=== PATIENT | male | born 1935 | race Caucasian/White ===

== ENCOUNTER 2016-12-31 14:15 | Emergency (ER) | payer MEDICARE, OTHER ==
[2016-12-31 14:54] VITALS: TEMP 97.5
[2016-12-31] MEDS ORDERED: IPRATROPIUM/ALBUTEROL 3 ML VIAL NEB ONE (15:00)
--- NOTE | 2016-12-31 15:19 | RAD ---
Portable chest INDICATION: Dyspnea COMPARISON: April 25, 2016 IMPRESSION: Cardiomegaly with no florid failure. No pleural effusion or pneumothorax. No focal infiltrate. Tortuous aorta. Previous median sternotomy. Stable chest Electronically signed by: Chaim Nunez MD 12/31/2016 3:17 PM CDT
[2016-12-31] MEDS ORDERED: methylPREDNISolone SODIUM SUC 125 MG/2 ML VIAL IV ONE (15:46)
--- NOTE | 2016-12-31 15:50 | ED.PDOC ---
History of Present Illness - General Chief Complaint: Respiratory Problem Stated Complaint: shortness of breath Time Seen by Provider: 12/31/16 14:54 Source: patient Exam Limitations: no limitations - History of Present Illness Initial Comments: 81 yo M with COPD on 3 L oxygen constantly, s/p AMI with CABG, atrial fibrillation on dagibatrin presents with increasing dyspnea for one week. He also has had an increasing dry cough. He has had COPD exacerbations before and says that is what he thinks this is. No chest pain. No hx of bipedal edema. + former smoker, quit 9 years ago, no fever. He has not tried to increase his oxygen. No other complaints. Timing/Duration: 1 week Severity: mild Improving Factors: rest Worsening Factors: movement Associated Symptoms: cough Allergies/Adverse Reactions: Allergies NO KNOWN ALLERGY Allergy (Verified 12/31/16 14:57) Home Medications: Ambulatory Orders Atorvastatin Calcium [Lipitor] 10 mg PO HS #0 10/23/13 Dabigatran Etexilate [Pradaxa] 75 mg PO BID #0 cap 10/23/13 Aspirin [Baby Aspirin] 81 mg PO QD 07/25/14 Lisinopril 2.5 mg PO DAILY 07/25/14 Spironolactone 25 mg PO DAILY #30 tab 05/17/15 Azithromycin Tab [Zithromax] 250 mg PO QD #4 tab 04/25/16 Furosemide Tab [Lasix Tab] 80 mg PO BID 04/25/16 Metoprolol Succinate [Metoprolol Succinate ER] 12.5 mg PO BID 04/25/16 Potassium Chloride [Micro-K] 10 meq PO .M,W,F, 04/25/16 Prednisone 50 mg PO DAILY #4 tab 04/25/16 Prednisone [Deltasone] 20 mg PO DAILY #5 tab 12/31/16 Review of Systems - Review of Systems Constitutional: States: no symptoms reported Respiratory: States: see HPI Cardiology: States: no symptoms reported Gastrointestinal/Abdominal: States: no symptoms reported Genitourinary: States: no symptoms reported Musculoskeletal: States: no symptoms reported Skin: States: no symptoms reported Neurological: States: no symptoms reported Endocrine: States: no symptoms reported Hematologic/Lymphatic: States: no symptoms reported Past Medical History (General) - Patient Medical History Hx Seizures: No Hx Stroke: No Hx Asthma: Yes Hx of COPD: Yes Hx Cardiac Disorders: Yes - AFIB, CAD WITH STENTS Hx Congestive Heart Failure: Yes Hx Pacemaker: No Hx Hypertension: Yes Hx Diabetes: Yes - CURRENTLY DIET CONTROLLED, NO MEDS Hx Gastroesophageal Reflux: No Hx Renal Disease: No Hx Cancer: Yes - bladder Hx Hepatitis C: No Hx MRSA: Yes MRSA Source:: Urine Surgical History: other - Vaccination History Hx Tetanus, Diphtheria Vaccination: Yes Hx Influenza Vaccination: Yes Hx Pneumococcal Vaccination: Yes - Social History Hx Tobacco Use: No Hx Alcohol Use: No Hx Substance Use: No Hx Substance Use Treatment: No Hx Depression: No Hx Physical Abuse: No Hx Emotional Abuse: No Hx Suspected Abuse: No - Activities of Daily Living Hospice Agency (if applicable):: None - Female History Patient is a Female of Child Bearing Age (10 -59 yrs old): No Patient : No Family Medical History - Family History Mother Family History: No Known Cause of : old age Physical Exam - Physical Exam General Appearance: Alert Ears, Nose, Throat: normal ENT inspection Neck: non-tender, full range of motion, supple Respiratory: chest non-tender, lungs clear Cardiovascular/Chest: normal peripheral pulses, irregularly irregular Gastrointestinal/Abdominal: normal bowel sounds, non tender, soft Back Exam: no CVA tenderness Extremity: normal inspection, no pedal edema Skin Exam: normal color Lymphatic: no adenopathy Progress - Progress Progress: 12/31/16 15:51 Duonebs x one. Solumedrol 125 mg IV x one. 12/31/16 17:31 Patient's dyspnea resolved. He was sent home with prednisone 20 mg po qd x 5 days. Laboratory Tests 12/31/16 12/31/16 12/31/16 15:15 15:15 15:15 WBC 8.4 RBC 4.13 L Hgb 12.7 L Hct 38.7 L MCV 93.6 MCH 30.7 MCHC 32.9 L RDW 15.5 H Plt Count 172 MPV 8.7 Absolute Neuts (auto) 5.30 Absolute Lymphs (auto) 1.10 Absolute Monos (auto) 0.90 H Absolute Eos (auto) 1.00 H Absolute Basos (auto) 0.10 Neutrophils % 63.0 Lymphocytes % 12.6 L Monocytes % 10.6 H Eosinophils % 12.4 H Basophils % 1.4 PT 13.3 H INR 1.180 PTT (SP) 47.3 H Sodium 138 Potassium 4.6 Chloride 102 Carbon Dioxide 28 Anion Gap 12.6 BUN 28 H Creatinine 2.04 H BUN/Creatinine Ratio 13.7 Random Glucose 104 Serum Osmolality 281.5 Calcium 8.9 Total Bilirubin 0.4 AST 14 ALT 10 Alkaline Phosphatase 70 Creatine Kinase 75 CK-MB (CK-2) 1.7 CK-MB (CK-2) % Not Reportable Troponin I 0.02 B-Natriuretic Peptide 193.0 H Serum Total Protein 6.8 Albumin 4.0 Globulin 2.8 Albumin/Globulin Ratio 1.4 Departure - Departure Clinical Impression: COPD exacerbation Disposition: Discharge to Home or Self Care Condition: Good Departure Forms: ED Discharge - Pt. Copy, Patient Portal Self Enrollment Diet: resume usual diet Activity: increase activity as tolerated Referrals: Raj Louie III, MD [Primary Care Provider] - 1-2 Weeks Prescriptions: Prednisone [Deltasone] 20 mg PO DAILY #5 tab Home Medications: Ambulatory Orders Atorvastatin Calcium [Lipitor] 10 mg PO HS #0 10/23/13 Dabigatran Etexilate [Pradaxa] 75 mg PO BID #0 cap 10/23/13 Aspirin [Baby Aspirin] 81 mg PO QD 07/25/14 Lisinopril 2.5 mg PO DAILY 07/25/14 Spironolactone 25 mg PO DAILY #30 tab 05/17/15 Azithromycin Tab [Zithromax] 250 mg PO QD #4 tab 04/25/16 Furosemide Tab [Lasix Tab] 80 mg PO BID 04/25/16 Metoprolol Succinate [Metoprolol Succinate ER] 12.5 mg PO BID 04/25/16 Potassium Chloride [Micro-K] 10 meq PO .M,W,F, 04/25/16 Prednisone 50 mg PO DAILY #4 tab 04/25/16 Prednisone [Deltasone] 20 mg PO DAILY #5 tab 12/31/16 Additional Instructions: Take medication as prescribed. Follow up with your regular doctor within one week.
[2016-12-31 17:45] VITALS: BP 114/69; O2SAT 92
== END 2016-12-31 17:43 | disposition home or self-care (01) ==
LOC: ER 14:15
DX: J44.1 Chronic obstructive pulmonary disease with (acute) exacerbation (principal); I48.91 Unspecified atrial fibrillation; I11.0 Hypertensive heart disease with heart failure; I50.9 Heart failure, unspecified; E11.9 Type 2 diabetes mellitus without complications; Z85.51 Personal history of malignant neoplasm of bladder; Z99.81 Dependence on supplemental oxygen; Z79.82 Long term (current) use of aspirin; Z79.899 Other long term (current) drug therapy; Z86.14 Personal history of Methicillin resistant Staphylococcus aureus infection
CPT/HCPCS: 36415; 71010; 80053; 82550; 82553; 83880; 84484; 85025; 85610; 85730; 93005; 94640; J2930; J7620

== ENCOUNTER → 2017-02-20 | Outpatient (CLI) | payer MEDICARE, OTHER | END | disposition home or self-care (01) | LOC: GMAL 10:21 | PROVIDERS: ATTEND Family Medicine | DX: D51.3 Other dietary vitamin B12 deficiency anemia (principal); E55.9 Vitamin D deficiency, unspecified ==

== ENCOUNTER → 2017-03-02 | Outpatient (CLI) | payer MEDICARE, OTHER ==
--- NOTE | 2017-03-02 11:51 | RAD ---
EXAM DESCRIPTION: Hip,Left 2 Views (accession [id number]), Pelvis (accession [id number]) CLINICAL HISTORY: 81 years,Male,PAIN IN LEFT HIP COMPARISON: June 20, 2016 FINDINGS: The left hip demonstrates total hip arthroplasty which appears unremarkable. No fractures or lucencies about the hardware devices. No dislocations.. The joint spaces demonstrate mild loss superiorly in the right hip.. The included pelvis is unremarkable. Endograft stenting is seen and coils in the right pelvis are also seen. IMPRESSION: Stable Unremarkable left total hip arthroplasty. And very mild right hip osteoarthritic changes. Electronically signed by: Raj Crouch MD 03/02/2017 11:50 AM CDT
--- NOTE | 2017-03-02 11:51 | RAD ---
EXAM DESCRIPTION: Hip,Left 2 Views (accession [id number]), Pelvis (accession [id number]) CLINICAL HISTORY: 81 years,Male,PAIN IN LEFT HIP COMPARISON: June 20, 2016 FINDINGS: The left hip demonstrates total hip arthroplasty which appears unremarkable. No fractures or lucencies about the hardware devices. No dislocations.. The joint spaces demonstrate mild loss superiorly in the right hip.. The included pelvis is unremarkable. Endograft stenting is seen and coils in the right pelvis are also seen. IMPRESSION: Stable Unremarkable left total hip arthroplasty. And very mild right hip osteoarthritic changes. Electronically signed by: Raj Crouch MD 03/02/2017 11:50 AM CDT
== END | disposition home or self-care (01) ==
LOC: RAD 08:47
PROVIDERS: ATTEND Orthopaedic Surgery
DX: M25.552 Pain in left hip (principal)

== ENCOUNTER → 2017-03-19 | Outpatient (CLI) | payer MEDICARE, OTHER ==
--- NOTE | 2017-03-20 10:11 | NM ---
EXAM DESCRIPTION: Bone Scan, 3Phase CLINICAL HISTORY: 81 years Male, [employer] COMPARISON: AP view of the pelvis March 02, 2017 TECHNIQUE: Three phase bone scan of the pelvis and hip region was performed using 25.9 mCi of technetium MDP. FINDINGS: Flow study demonstrates normal flow study with symmetric activity involving the pelvis and hip regions with a photopenic area from the left hip replacement noted. Blood pool imaging suggests a tiny amount of activity at the lateral aspect of the left hip overlying the region of the greater trochanter. There are delayed imaging demonstrates modest activity in this location and also at the tip of the left hip prosthesis within the proximal femoral shaft. The possibility of loosening of the prosthesis should be considered. The pattern is not typical for osteomyelitis or septic joint replacement. Increased activity in the region of the acetabulum is not apparent. An element of enteric bursitis related to the hypertrophic bony changes over the greater trochanter would be an additional consideration. IMPRESSION: 1. Normal blood flow study with no evidence of hyperemic changes in the region of the left hip replacement. 2. Modest delayed activity overlying the region of the left greater trochanter and at the tip of the femoral prosthesis suggesting the possibility of loosening and/or trochanteric bursitis. The pattern is not strongly suggest osteomyelitis or septic arthropathy. Electronically signed by: Pérez Perez MD 03/20/2017 10:09 AM CDT
== END | disposition home or self-care (01) ==
LOC: NM 13:51
PROVIDERS: ATTEND Orthopaedic Surgery
DX: T84.84XA Pain due to internal orthopedic prosthetic devices, implants and grafts, initial encounter (principal)
CPT/HCPCS: 78315; A9503

== ENCOUNTER 2017-08-10 12:54 | Emergency (ER) | payer MEDICARE, OTHER ==
[2017-08-10] MEDS ORDERED: IPRATROPIUM/ALBUTEROL 3 ML VIAL NEB ONE (14:14)
--- NOTE | 2017-08-10 14:17 | ED.PDOC ---
History of Present Illness - General Chief Complaint: Respiratory Problem Time Seen by Provider: 08/10/17 14:03 Source: patient Exam Limitations: no limitations - History of Present Illness Timing/Duration: other - three days Severity: severe Activities at Onset: none Possible Cause: frequent episodes Improving Factors: nothing Worsening Factors: movement Associated Symptoms: cough Allergies/Adverse Reactions: Allergies NO KNOWN ALLERGY Allergy (Verified 12/31/16 14:57) Home Medications: Ambulatory Orders Atorvastatin Calcium [Lipitor] 10 mg PO HS #0 10/23/13 Dabigatran Etexilate [Pradaxa] 75 mg PO BID #0 cap 10/23/13 Aspirin [Baby Aspirin] 81 mg PO QD 07/25/14 Lisinopril 2.5 mg PO DAILY 07/25/14 Spironolactone 25 mg PO DAILY #30 tab 05/17/15 Azithromycin Tab [Zithromax] 250 mg PO QD #4 tab 04/25/16 Furosemide Tab [Lasix Tab] 80 mg PO BID 04/25/16 Metoprolol Succinate [Metoprolol Succinate ER] 12.5 mg PO BID 04/25/16 Potassium Chloride [Micro-K] 10 meq PO .M,W,F, 04/25/16 Prednisone 50 mg PO DAILY #4 tab 04/25/16 Prednisone [Deltasone] 20 mg PO DAILY #5 tab 12/31/16 Levofloxacin Tab (ER Dispense) [Levaquin Tab (ER Dispense)] 500 mg PO Q24HR #10 tab 08/10/17 Prednisone [Deltasone] 20 mg PO BID #10 tab 08/10/17 Review of Systems - Review of Systems Constitutional: States: chills, malaise, weakness. Denies: fever EENTM: Denies: nose congestion, throat pain Respiratory: States: cough, short of breath. Denies: orthopnea Cardiology: Denies: chest pain Gastrointestinal/Abdominal: Denies: abdominal pain, diarrhea, nausea, vomiting Genitourinary: Denies: dysuria, frequency Musculoskeletal: Denies: joint pain, muscle pain Skin: Denies: change in color, rash Neurological: States: weakness. Denies: headache, numbness Endocrine: States: no symptoms reported Hematologic/Lymphatic: States: no symptoms reported Past Medical History (General) - Patient Medical History Hx Seizures: No Hx Stroke: No Hx Asthma: Yes Hx of COPD: Yes Hx Cardiac Disorders: Yes - AFIB, CAD WITH STENTS Hx Congestive Heart Failure: Yes Hx Pacemaker: No Hx Hypertension: Yes Hx Diabetes: Yes - CURRENTLY DIET CONTROLLED, NO MEDS Hx Gastroesophageal Reflux: No Hx Renal Disease: No Hx Cancer: Yes - bladder Hx Hepatitis C: No Hx MRSA: Yes MRSA Source:: Urine - Vaccination History Hx Tetanus, Diphtheria Vaccination: Yes Hx Influenza Vaccination: Yes Hx Pneumococcal Vaccination: Yes - Social History Hx Tobacco Use: No Hx Alcohol Use: No Hx Substance Use: No Hx Substance Use Treatment: No Hx Depression: No Hx Physical Abuse: No Hx Emotional Abuse: No Hx Suspected Abuse: No - Female History Patient : No Family Medical History - Family History Mother Family History: No Known Cause of : old age Physical Exam - Physical Exam General Appearance: Alert, Anxious, Obvious distress Eyes, Ears, Nose, Throat Exam: PERRL/EOMI, pharynx normal Neck: full range of motion, supple Respiratory: decreased breath sounds, wheezing Cardiovascular/Chest: regular rate, rhythm, no edema Gastrointestinal/Abdominal: normal bowel sounds, non tender, soft Extremity: normal range of motion, non-tender, normal inspection Neurologic: alert, oriented x 3 Skin Exam: normal color Lymphatic: no adenopathy Departure - Departure Clinical Impression: COPD (chronic obstructive pulmonary disease) with chronic bronchitis Disposition: Discharge to Home or Self Care Condition: Fair Departure Forms: ED Discharge - Pt. Copy, Patient Portal Self Enrollment Referrals: Raj Louie III, MD [Primary Care Provider] - 1-2 Weeks Prescriptions: Levofloxacin Tab (ER Dispense) [Levaquin Tab (ER Dispense)] 500 mg PO Q24HR #10 tab Prednisone [Deltasone] 20 mg PO BID #10 tab Home Medications: Ambulatory Orders Atorvastatin Calcium [Lipitor] 10 mg PO HS #0 10/23/13 Dabigatran Etexilate [Pradaxa] 75 mg PO BID #0 cap 10/23/13 Aspirin [Baby Aspirin] 81 mg PO QD 07/25/14 Lisinopril 2.5 mg PO DAILY 07/25/14 Spironolactone 25 mg PO DAILY #30 tab 05/17/15 Azithromycin Tab [Zithromax] 250 mg PO QD #4 tab 04/25/16 Furosemide Tab [Lasix Tab] 80 mg PO BID 04/25/16 Metoprolol Succinate [Metoprolol Succinate ER] 12.5 mg PO BID 04/25/16 Potassium Chloride [Micro-K] 10 meq PO .M,W,F, 04/25/16 Prednisone 50 mg PO DAILY #4 tab 04/25/16 Prednisone [Deltasone] 20 mg PO DAILY #5 tab 12/31/16 Levofloxacin Tab (ER Dispense) [Levaquin Tab (ER Dispense)] 500 mg PO Q24HR #10 tab 08/10/17 Prednisone [Deltasone] 20 mg PO BID #10 tab 18
--- NOTE | 2017-08-10 15:11 | RAD ---
EXAM DESCRIPTION: Chest,1 View CLINICAL HISTORY: 81 years Male, sob COMPARISON: Single view chest x-ray December 31, 2016 TECHNIQUE: AP portable chest. FINDINGS: Heart size is increased with normal peripheral pulmonary vascularity. Prominent heart may be due to enlarged fat pads or could be cardiomegaly or pericardial effusion. Aorta is somewhat ectatic and tortuous. Small hiatal hernia behind the heart is suspected. No consolidating infiltrate in the right lung or left lung base. In the periphery of the left upper lobe projecting over the lower scapula, nodular density in the lung is questioned projecting between posterolateral left fifth and sixth ribs. This was not seen on the previous study. Upright PA and lateral chest x-ray is recommended for further evaluation. If the nodular density persists on additional images, chest CT should be performed. No pneumothorax or pleural effusion. Bones are unremarkable for age. Sternotomy wires are present. IMPRESSION: Question nodule in the peripheral left upper lobe. Additional imaging is recommended. Electronically signed by: Tex Houser MD 08/10/2017 3:10 PM [facility]
[2017-08-10 16:01] VITALS: BP 109/67; TEMP 99.2; O2SAT 92
== END 2017-08-10 16:01 | disposition home or self-care (01) ==
LOC: ER 12:54
DX: J44.9 Chronic obstructive pulmonary disease, unspecified (principal); I48.91 Unspecified atrial fibrillation; I11.0 Hypertensive heart disease with heart failure; I50.9 Heart failure, unspecified; E11.9 Type 2 diabetes mellitus without complications; Z85.51 Personal history of malignant neoplasm of bladder
CPT/HCPCS: 36415; 36600; 71045; 80053; 82803; 82805; 85025; 87070; 94640; J7620

== ENCOUNTER → 2017-09-22 | Outpatient (CLI) | payer MEDICARE, OTHER | END | disposition home or self-care (01) | LOC: GMAL 14:01 | PROVIDERS: ATTEND Family Medicine | DX: R53.82 Chronic fatigue, unspecified (principal); E55.9 Vitamin D deficiency, unspecified; D51.3 Other dietary vitamin B12 deficiency anemia ==

== ENCOUNTER → 2017-09-24 | Outpatient (CLI) | payer MEDICARE, OTHER | END | disposition home or self-care (01) | LOC: GMAL 14:12 | PROVIDERS: ATTEND Family Medicine | DX: L89.893 Pressure ulcer of other site, stage 3 (principal) ==

== ENCOUNTER → 2017-09-28 | Outpatient (CLI) | payer MEDICARE, OTHER ==
--- NOTE | 2017-09-28 09:35 | MRI ---
Study: MRI of the Right Foot. Indication: SUBACUTE OSTEOMYELITIS Technique: Multiplanar, multi sequence MRI of the right foot was obtained without intravenous contrast. Comparison: None. Findings: Cellulitis throughout the forefoot. External skin marker placed plantar to the first MTP joint with a site of ulceration. No drainable fluid collection identified at this site. No definitive features of osteomyelitis. There is a moderate first MTP joint effusion and moderate osteoarthritis of the first MTP joint. Mild marrow edema is noted within the dorsal margin of the lateral sesamoid which is favored to reflect sesamoiditis rather than osteomyelitis. Myositis throughout the deep plantar musculature of the forefoot. Mild hammertoe configuration of the first through fifth digits. TMT joint alignment normal. Lisfranc ligament intact. No appreciable tear of the visualized distal portions of the flexor and extensor tendons or plantar fascia. Impression: Cellulitis throughout the foot with ulceration plantar to the first MTP joint. No definitive features of osteomyelitis. Additional findings as above. Electronically signed by: Maxime Pineda MD 09/28/2017 9:34 AM CDT
== END | disposition home or self-care (01) ==
LOC: MRI 09:00
PROVIDERS: ATTEND Family Medicine
DX: L03.115 Cellulitis of right lower limb (principal); L97.419 Non-pressure chronic ulcer of right heel and midfoot with unspecified severity

== ENCOUNTER → 2017-10-28 | Outpatient (CLI) | payer MEDICARE, OTHER | LOC: GRHH 09:26 | PROVIDERS: ATTEND Family Medicine | DX: E11.9 Type 2 diabetes mellitus without complications (principal) ==

== ENCOUNTER 2018-02-15 12:13 | Emergency (ER) | payer MEDICARE, OTHER ==
[2018-02-15 12:28] VITALS: TEMP 98.6
--- NOTE | 2018-02-15 14:57 | RAD ---
EXAM DESCRIPTION: Abdomen Flat Upright CLINICAL HISTORY: syncope, back, abd pain COMPARISON: None TECHNIQUE: AP radiographs of the abdomen supine upright. Inferior upright chest.. FINDINGS: No infiltrate in the lung bases. Minimal scarring in the left base. No pleural effusion. No free air under the diaphragms. Sternotomy wires. Pericardial surgical clips on the left. Aortic stent and stents in the bilateral common iliac arteries. Abundant fecal matter in the ascending and transverse colon. Gas in the proximal sigmoid is slightly distended. No significant amount of gas distending the small bowel. Prior left total hip arthroplasty. Questionable wire coil to the left of the aorta in the vicinity of the left kidney. IMPRESSION: Constipation or fecal impaction proximal and mid kidney. Aortic and common iliac stents. No free air under the diaphragms. No significant amount of gas distending the small bowel. Electronically signed by: Ron Haley MD 02/15/2018 1:32 PM CDT
--- NOTE | 2018-02-15 14:57 | RAD ---
EXAM DESCRIPTION: Chest,1 View CLINICAL HISTORY: syncope COMPARISON: Portable chest 08/10/2017. TECHNIQUE: AP portable taken at 1245 hours, upright position. Patient actually HONDURAN. FINDINGS: Volume loss in the right upper lobe since the prior study with patchy consolidation. Improved expansion in the left lung. Patient also is rotated HONDURAN which may be artifactually reducing the right lung volume. Heart size within normal limits. Pulmonary vascularity not increased. No acute bony thoracic abnormalities. IMPRESSION: Consolidation in the right upper lobe is new since the prior study. Patient is HONDURAN which causes inaccurate interpretation of lung volumes. No pulmonary vascular congestion. Electronically signed by: Ron Haley MD 02/15/2018 1:32 PM CDT
--- NOTE | 2018-02-15 14:58 | CT ---
EXAM DESCRIPTION: Head: Computed Tomography. CLINICAL HISTORY: syncope. Blacked out of bed. No falling. COMPARISON: . Blacked out of bed. No following. TECHNIQUE: Non-helical axial scans through the skull and brain, at 2.5 mm intervals, non-contrast. Coronal and sagittal 2.0 mm reconstructions. Total Exam DLP: 967.47 mGy-cm. This exam was performed according to our departmental dose-optimization program which includes automated exposure control, adjustment of the mA and/or kV according to patient size and/or use of iterative reconstruction technique; to reduce radiation dose to as low as reasonably achievable (ALARA). FINDINGS: No intra-axial hemorrhage, no mass-effect, and no midline shift. Periventricular white matter low-density symmetric bilaterally. More focal in the bilateral basal ganglia. Also in the subcortical white matter above the ventricles. Focal small encephalomalacia collins radiata left frontal lobe abutting the lateral ventricle. Vascular calcifications anterior and posterior; physiologic calcifications in the pineal gland and choroid plexus. No effacement or displacement of the ventricles, CSF spaces, or subdural spaces. No extra axial fluid collection or hemorrhage. No gross abnormalities of the bony calvarium. Polyp base of the anterior right maxillary antrum. Bilateral andrea bullosa in the middle turbinates. Minimal mucoperiosteal thickening in the left maxillary antrum. No air-fluid levels. IMPRESSION: 1. No hemorrhage, no mass effect, no midline shift. Bilateral ischemic changes most likely related to cerebral microvascular disease and aging. 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 No extra-axial hemorrhage. 2. CT scans are insensitive for detecting small CVAs in the first 24 hours after onset. Evaluation of the brain stem is also limited. If symptoms persist, consider NON-EMERGENT MRI scan of the brain with diffusion imaging. 3. Chronic paranasal sinusitis and other sinus abnormalities as noted. Electronically signed by: Ron Haley MD 02/15/2018 1:43 PM CDT
--- NOTE | 2018-02-15 16:44 | CT ---
EXAM DESCRIPTION: Chest w/o Contrast CLINICAL HISTORY: 82 years, Male, syncope, back pain, elev. ddimer COMPARISON: None TECHNIQUE: Thin-section noncontrast axial CT images are obtained according to our protocol. Reconstructed MPR images are created and reviewed as well. FINDINGS: Fibrotic infiltrate is seen in the right upper lobe with extensive emphysema in both lungs. Bilateral apical pleural-parenchymal scarring. Coronary calcification is present. Heart is large. No mediastinal or hilar adenopathy. There is mild gynecomastia bilaterally. No acute appearing pneumonia. No worrisome mass to suggest malignant process. Coronal and sagittal reformatted images confirm the findings. Upper abdominal viscera are unremarkable. Right lung volume is smaller than the left. Ectatic ascending aorta measures 4 cm. Dilated pulmonary arteries are consistent with pulmonary hypertension. IMPRESSION: Chronic appearing fibrotic infiltrate in the right upper lobe. Bilateral pulmonary emphysema. This exam was performed according to our departmental dose-optimization program, which includes automated exposure control, adjustment of the mA and/or kV according to patient size and/or use of iterative reconstruction technique. Total DLP equals 1868.84 mGycm. Electronically signed by: Tex Houser MD 02/15/2018 4:39 PM CDT
--- NOTE | 2018-02-15 16:57 | CT ---
EXAM DESCRIPTION: Abdoment/Pelvis w/o Contrast CLINICAL HISTORY: 82 years, Male, syncope, back pain, elev ddimer COMPARISON: Previous study May 11, 2013 TECHNIQUE: CT of the abdomen and pelvis is performed according to our non contrast protocol. FINDINGS: The lung bases are clear. Liver, spleen, and pancreas are unremarkable. Adrenal glands appear normal. The right kidney is unremarkable. Gallstones are present without acute inflammatory changes. Vascular stent graft in the aorta is seen. The aneurysm has decreased in size since the previous study May 11, 2013. Vascular stents are seen in the celiac axis and renal artery origins as well as in the common iliac arteries. Previously aneurysm measured 6.1 cm and has now decreased to 4.6 cm. Small cyst in the lower pole of the right kidney is present. Left renal cysts are present with left renal scarring. No renal stones or hydronephrosis. Small bowel loops appear normal in caliber with normal wall thickness. There is no lymphadenopathy, inflammation, or free fluid observed. In the pelvis, the appendix is normal. No inflammation around the cecum or terminal ileum or sigmoid colon. No stones in the distal ureters or bladder. Rectal wall thickness is normal for degree of distention. No free fluid or mass in the pelvis. Prostate appears prominent. Metal artifact from left hip prosthesis. No inguinal or lower pelvic adenopathy. Coronal and sagittal reformatted images confirm the findings. IMPRESSION: Vascular stents in the abdominal vessels with decreased size of stented aortic aneurysm since previous study. Calcified stones in the gallbladder. This exam was performed according to our departmental dose-optimization program, which includes automated exposure control, adjustment of the mA and/or kV according to patient size and/or use of iterative reconstruction technique. Total DLP equals 1868.84 mGycm. Electronically signed by: Tex Houser MD 02/15/2018 4:56 PM CDT
[2018-02-15] MEDS ORDERED: SODIUM CHLORIDE 0.9% 1000ML 1,000 ML IVS ONE (17:25)
[2018-02-15] MEDS ORDERED: MAGNESIUM HYDROXIDE 30 ML UD PO ONE (17:28)
--- NOTE | 2018-02-15 17:46 | ED.PDOC ---
History of Present Illness - General Chief Complaint: Problem Time Seen by Provider: 02/15/18 12:21 Source: patient Exam Limitations: no limitations - History of Present Illness Initial Comments: the patient is an 82-year-old male presenting to the emergency room secondary to mental low back pain has been present for last couple of days. Additionally he reports that he had either a very brief syncopal episode or a very significant near syncopal episode this morning while trying to get out of bed. He did not fall and hurt himself. No evidence of any seizure activity. It probably lasted only a couple of seconds according to him. He did not have any pain. No palpitations. No shortness of breath. No real urinary symptoms. No nausea or vomiting. Timing/Duration: unsure Severity: mild Improving Factors: nothing Worsening Factors: nothing Associated Symptoms: denies symptoms Allergies/Adverse Reactions: Allergies NO KNOWN ALLERGY Allergy (Verified 12/31/16 14:57) Home Medications: Ambulatory Orders Atorvastatin Calcium [Lipitor] 10 mg PO HS #0 10/23/13 Dabigatran Etexilate [Pradaxa] 75 mg PO BID #0 cap 10/23/13 Aspirin [Baby Aspirin] 81 mg PO QD 07/25/14 Lisinopril 2.5 mg PO DAILY 07/25/14 Spironolactone 25 mg PO DAILY #30 tab 05/17/15 Azithromycin Tab [Zithromax] 250 mg PO QD #4 tab 04/25/16 Furosemide Tab [Lasix Tab] 80 mg PO BID 04/25/16 Metoprolol Succinate [Metoprolol Succinate ER] 12.5 mg PO BID 04/25/16 Potassium Chloride [Micro-K] 10 meq PO .M,W,F, 04/25/16 Prednisone 50 mg PO DAILY #4 tab 04/25/16 Prednisone [Deltasone] 20 mg PO DAILY #5 tab 12/31/16 Levofloxacin Tab (ER Dispense) [Levaquin Tab (ER Dispense)] 500 mg PO Q24HR #10 tab 08/10/17 Prednisone [Deltasone] 20 mg PO BID #10 tab 08/10/17 Azithromycin 250 mg PO DAILY #10 tab 02/15/18 Review of Systems - Review of Systems Constitutional: States: no symptoms reported EENTM: States: no symptoms reported Respiratory: States: no symptoms reported Cardiology: States: syncope Gastrointestinal/Abdominal: States: no symptoms reported Genitourinary: States: no symptoms reported Musculoskeletal: States: back pain Skin: States: no symptoms reported Neurological: States: no symptoms reported Endocrine: States: no symptoms reported All other Systems: No Change from Baseline Past Medical History (General) - Patient Medical History Hx Seizures: No Hx Stroke: No Hx Asthma: Yes Hx of COPD: Yes Hx Cardiac Disorders: Yes - AFIB, CAD WITH STENTS Hx Congestive Heart Failure: Yes Hx Pacemaker: No Hx Hypertension: Yes Hx Diabetes: Yes - CURRENTLY DIET CONTROLLED, NO MEDS Hx Gastroesophageal Reflux: No Hx Renal Disease: No Hx Cancer: Yes - bladder Hx Hepatitis C: No Hx MRSA: Yes MRSA Source:: Urine - Vaccination History Hx Tetanus, Diphtheria Vaccination: No Hx Influenza Vaccination: Yes Hx Pneumococcal Vaccination: No Immunizations Up to Date: No - Social History Hx Tobacco Use: No Hx Chewing Tobacco Use: No Hx Alcohol Use: No Hx Substance Use: No Hx Substance Use Treatment: No Hx Depression: No Feels Threatened In Home Enviroment: No Feels Threatened In a Relationship: No Hx Physical Abuse: No Hx Emotional Abuse: No Hx Suspected Abuse: No - Activities of Daily Living Hospice Agency (if applicable):: None - Female History Patient is a Female of Child Bearing Age (10 -59 yrs old): No Patient : No Family Medical History - Family History Mother Family History: No Known Cause of : old age Physical Exam - Physical Exam General Appearance: Alert, Comfortable, No apparent distress Eye Exam: bilateral normal Ears, Nose, Throat: normal ENT inspection, normal pharynx, other - earing chronically decreased bilaterally Neck: full range of motion, supple Respiratory: lungs clear, normal breath sounds, no respiratory distress, no accessory muscle use Cardiovascular/Chest: normal peripheral pulses, no edema, irregularly irregular , other - regular rate Peripheral Pulses: radial,right: 2+, radial,left: 2+, dorsalis pedis,right: 2+, dorsalis pedis,left: 2+ Gastrointestinal/Abdominal: non tender, soft Rectal Exam: deferred Back Exam: normal inspection, no vertebral tenderness, CVA tenderness (R) - very mild Extremity: normal range of motion, non-tender, normal inspection, no pedal edema , normal capillary refill 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 tested, alert, normal mood/affect, oriented x 3 Skin Exam: normal color Comments: Vital Signs - 24 hr 02/15/18 02/15/18 02/15/18 12:18 12:47 13:16 Temperature 98.6 F Pulse Rate [ 78 74 83 Apical] Respiratory 18 18 18 Rate Blood Pressure 128/75 122/76 131/94 [Left Arm] O2 Sat by Pulse 92 L 92 L 93 L Oximetry 02/15/18 02/15/18 02/15/18 13:36 14:18 15:00 Temperature Pulse Rate [ 69 62 67 Apical] Respiratory 18 18 20 Rate Blood Pressure 103/56 127/103 130/63 [Left Arm] O2 Sat by Pulse 92 L 93 L Oximetry 02/15/18 02/15/18 02/15/18 15:01 15:02 16:00 Temperature Pulse Rate [ 61 68 62 Apical] Respiratory 20 22 18 Rate Blood Pressure 111/58 99/50 127/103 [Left Arm] O2 Sat by Pulse 93 L Oximetry 02/15/18 17:00 Temperature Pulse Rate [ 54 L Apical] Respiratory 18 Rate Blood Pressure 131/61 [Left Arm] O2 Sat by Pulse 94 L Oximetry Progress - Progress Progress: 02/15/18 17:50 the patient's 82-year-old male presenting secondary to right-sided mid to low back pain that is most likely due to his constipation. He is receiving a dose of milk of magnesia here. The patient additionally has worsening renal function and does appear to be dehydrated. He is receiving a liter of fluids here and he is encouraged to increase his fluid intake. He does need to have repeat lab work done next week with his primary care doctor. creatinine was 2.4 for today. Additionally the patient does have a fibrotic right upper lobe infiltrate on his CT scan. I'm going to empirically place the patient on azithromycin 250 mg daily for 10 days. He has not actually had any symptoms of a pneumonia. I'm uncertain what this process is. He may benefit from a pulmonology referral for further evaluation in the future, or repeat imaging in the future to make sure this is not progressive. This is likely a chronic process. Additionally the patient had a syncopal episode this morning that is most likely orthostatic in nature given his tilt vital signs. He did receive a liter of fluids both for the renal insufficiency as well as to help with the orthostasis. He does need to hold onto something for about 20 seconds after he stands up to prevent repeat passing out episodes with getting up. He needs to ambulate carefully. again he needs to follow up with his primary care doctor either later this week or early next week for repeat evaluation. ER warnings were given. Consideration has been given to placing the patient in observation here overnight however it does appear that his presence is necessary in his home overnight in the care of his . - Results/Orders Results/Orders: vital signs show a drop in systolic blood pressure more than 35 points going from a lying to a standing position. 02/15/18 12:45 EKG STAT atrial fibrillation at a rate of 77 bpm. Normal axis. No acute ST segment changes or T-wave changes definitive for ischemia. Normal R-wave progression. Borderline prolonged QT interval at 468 corrected. Chest x-ray shows infiltrate in the right upper lobe. Abdominal x-ray shows a large amount of stool burden up high in the colon CT scan of the chest shows fibrotic infiltrate in the right upper lung. No evidence of acute infection. CT scan of the abdomen and pelvis without contrast shows the previous changes from the aortic aneurysm repair. No evidence of any obstruction. No other definitive acute changes. Laboratory Results - last 24 hr 02/15/18 02/15/18 02/15/18 12:42 13:19 13:19 WBC 8.9 RBC 4.37 L Hgb 12.6 L Hct 38.9 L MCV 89.1 MCH 28.8 MCHC 32.3 L RDW 15.0 H Plt Count 145 MPV 9.7 Absolute Neuts (auto) 6.20 Absolute Lymphs (auto) 1.60 Absolute Monos (auto) 0.70 Absolute Eos (auto) 0.30 Absolute Basos (auto) 0.10 Neutrophils % 70.0 Lymphocytes % 17.7 L Monocytes % 8.3 Eosinophils % 3.4 Basophils % 0.6 PT INR PTT (SP) D-Dimer, Quantitative Sodium 137 Potassium 4.6 Chloride 100 L Carbon Dioxide 29 Anion Gap 12.6 BUN 44 H Creatinine 2.44 H BUN/Creatinine Ratio 18.0 Random Glucose 105 Serum Osmolality 285.4 Lactic Acid Calcium 8.9 Magnesium 2.0 Total Bilirubin 0.7 AST 16 ALT 12 Alkaline Phosphatase 66 Creatine Kinase 98 CK-MB (CK-2) 1.7 CK-MB (CK-2) % Not Reportable Troponin I < 0.02 B-Natriuretic Peptide 168.0 H Serum Total Protein 7.4 Albumin 4.2 Globulin 3.2 Albumin/Globulin Ratio 1.3 Urine Color Yellow Urine Appearance Clear Urine pH 5.5 Ur Specific [place] 1.015 Urine Protein Negative Urine Glucose (UA) Negative Urine Ketones Negative Urine Blood Negative Urine Nitrite Negative Urine Bilirubin Negative Urine Urobilinogen 0.2 Ur Leukocyte Esterase Negative Urine RBC 0 Urine WBC 0-1 Ur Epithelial Cells 3-5 Urine Bacteria 0 02/15/18 02/15/18 13:19 13:19 WBC RBC Hgb Hct MCV MCH MCHC RDW Plt Count MPV Absolute Neuts (auto) Absolute Lymphs (auto) Absolute Monos (auto) Absolute Eos (auto) Absolute Basos (auto) Neutrophils % Lymphocytes % Monocytes % Eosinophils % Basophils % PT 9.9 INR 0.99 PTT (SP) 29.2 D-Dimer, Quantitative 8.25 H* Sodium Potassium Chloride Carbon Dioxide Anion Gap BUN Creatinine BUN/Creatinine Ratio Random Glucose Serum Osmolality Lactic Acid 1.8 Calcium Magnesium Total Bilirubin AST ALT Alkaline Phosphatase Creatine Kinase CK-MB (CK-2) CK-MB (CK-2) % Troponin I B-Natriuretic Peptide Serum Total Protein Albumin Globulin Albumin/Globulin Ratio Urine Color Urine Appearance Urine pH Ur Specific [place] Urine Protein Urine Glucose (UA) Urine Ketones Urine Blood Urine Nitrite Urine Bilirubin Urine Urobilinogen Ur Leukocyte Esterase Urine RBC Urine WBC Ur Epithelial Cells Urine Bacteria - EKG/XRAY/CT CT Ordered: No CT Interpretation Call Back: No Departure - Departure Clinical Impression: Orthostatic syncope, Pulmonary infiltrate in right lung on CXR Constipation Qualifiers: Constipation type: unspecified constipation type Qualified Code(s): K59.00 - Constipation, unspecified Acute on chronic renal failure Qualifiers: Acute renal failure type: unspecified Chronic kidney disease stage: stage 4 ( severe) Qualified Code(s): N17.9 - Acute kidney failure, unspecified; N18.4 - Chronic kidney disease, stage 4 (severe); N18.4 - Chronic kidney disease, stage 4 (severe); N18.4 - Chronic kidney disease, stage 4 (severe); N18.4 - Chronic kidney disease, stage 4 (severe) Disposition: Discharge to Home or Self Care Condition: Fair Departure Forms: ED Discharge - Pt. Copy, Patient Portal Self Enrollment Instructions: Constipation in Adults, Kidney Failure (DC), Orthostatic Hypotension (DC) Diet: diabetic diet Activity: increase activity as tolerated Referrals: Raj Louie III, MD [Primary Care Provider] - 1-5 Days Prescriptions: Azithromycin 250 mg PO DAILY #10 tab Home Medications: Ambulatory Orders Atorvastatin Calcium [Lipitor] 10 mg PO HS #0 10/23/13 Dabigatran Etexilate [Pradaxa] 75 mg PO BID #0 cap 10/23/13 Aspirin [Baby Aspirin] 81 mg PO QD 07/25/14 Lisinopril 2.5 mg PO DAILY 07/25/14 Spironolactone 25 mg PO DAILY #30 tab 05/17/15 Azithromycin Tab [Zithromax] 250 mg PO QD #4 tab 04/25/16 Furosemide Tab [Lasix Tab] 80 mg PO BID 04/25/16 Metoprolol Succinate [Metoprolol Succinate ER] 12.5 mg PO BID 04/25/16 Potassium Chloride [Micro-K] 10 meq PO .M,W,F, 04/25/16 Prednisone 50 mg PO DAILY #4 tab 04/25/16 Prednisone [Deltasone] 20 mg PO DAILY #5 tab 12/31/16 Levofloxacin Tab (ER Dispense) [Levaquin Tab (ER Dispense)] 500 mg PO Q24HR #10 tab 08/10/17 Prednisone [Deltasone] 20 mg PO BID #10 tab 08/10/17 Azithromycin 250 mg PO DAILY #10 tab 02/15/18 Additional Instructions: the patient's 82-year-old male presenting secondary to right-sided mid to low back pain that is most likely due to his constipation. He is receiving a dose of milk of magnesia here. The patient additionally has worsening renal function and does appear to be dehydrated. He is receiving a liter of fluids here and he is encouraged to increase his fluid intake. He does need to have repeat lab work done next week with his primary care doctor. creatinine was 2.4 for today. Additionally the patient does have a fibrotic right upper lobe infiltrate on his CT scan. I'm going to empirically place the patient on azithromycin 250 mg daily for 10 days. He has not actually had any symptoms of a pneumonia. I'm uncertain what this process is. He may benefit from a pulmonology referral for further evaluation in the future, or repeat imaging in the future to make sure this is not progressive. This is likely a chronic process. Additionally the patient had a syncopal episode this morning that is most likely orthostatic in nature given his tilt vital signs. He did receive a liter of fluids both for the renal insufficiency as well as to help with the orthostasis. He does need to hold onto something for about 20 seconds after he stands up to prevent repeat passing out episodes with getting up. He needs to ambulate carefully. Additionally I do recommend that he hold a dose of Lasix daily for the next 3 days. again he needs to follow up with his primary care doctor either later this week or early next week for repeat evaluation. ER warnings were given. Consideration has been given to placing the patient in observation here overnight however it does appear that his presence is necessary in his home overnight in the care of his .
[2018-02-15 18:56] VITALS: O2SAT 96
[2018-02-15 18:58] VITALS: BP 112/66
== END 2018-02-15 19:00 | disposition home or self-care (01) ==
LOC: ER 12:13
DX: R55 Syncope and collapse (principal); K59.00 Constipation, unspecified; R91.8 Other nonspecific abnormal finding of lung field; N17.9 Acute kidney failure, unspecified; E11.22 Type 2 diabetes mellitus with diabetic chronic kidney disease; I13.0 Hypertensive heart and chronic kidney disease with heart failure and stage 1 through stage 4 chronic kidney disease, or unspecified chronic kidney disease; N18.4 Chronic kidney disease, stage 4 (severe); I50.9 Heart failure, unspecified; M54.5 Low back pain; I48.91 Unspecified atrial fibrillation; J44.9 Chronic obstructive pulmonary disease, unspecified; Z85.51 Personal history of malignant neoplasm of bladder; Z79.899 Other long term (current) drug therapy; Z79.82 Long term (current) use of aspirin
CPT/HCPCS: 36415; 70450; 71045; 71250; 74019; 74176; 80053; 81001; 82550; 82553; 83605; 83735; 83880; 84484; 85025; 85379; 85610; 85730; 93005; J7030

== ENCOUNTER → 2018-03-04 | Outpatient (CLI) | payer MEDICARE, OTHER | LOC: GRHH 11:05 | PROVIDERS: ATTEND Family Medicine | DX: N18.3 Chronic kidney disease, stage 3 (moderate) (principal) ==

== ENCOUNTER → 2018-06-24 | Outpatient (CLI) | payer MEDICARE, OTHER | LOC: GRHH 10:23 | PROVIDERS: ATTEND Family Medicine | DX: N18.3 Chronic kidney disease, stage 3 (moderate) (principal); E87.5 Hyperkalemia ==

== ENCOUNTER 2018-07-20 10:42 | Emergency (ER) | payer MEDICARE, OTHER ==
[2018-07-20 11:05] VITALS: TEMP 97.7
--- NOTE | 2018-07-20 11:25 | ED.PDOC ---
History of Present Illness - General Chief Complaint: General Stated Complaint: Cough, Nasal congestion Time Seen by Provider: 07/20/18 11:22 Source: patient Exam Limitations: no limitations - History of Present Illness Initial Comments: Susie Gleason 82 y/o male came to er with thick yellow drainage from his nose and non productive cough for 2 days stated with same illness no fever;no SOB. Timing/Duration: other - 48 hours Severity: moderate Improving Factors: nothing Worsening Factors: nothing Associated Symptoms: cough Allergies/Adverse Reactions: Allergies NO KNOWN ALLERGY Allergy (Verified 12/31/16 14:57) Home Medications: Ambulatory Orders Atorvastatin Calcium [Lipitor] 10 mg PO HS #0 10/23/13 Dabigatran Etexilate [Pradaxa] 75 mg PO BID #0 cap 10/23/13 Aspirin [Baby Aspirin] 81 mg PO QD 07/25/14 Lisinopril 2.5 mg PO DAILY 07/25/14 Spironolactone 25 mg PO DAILY #30 tab 05/17/15 Furosemide Tab [Lasix Tab] 80 mg PO BID 04/25/16 Metoprolol Succinate [Metoprolol Succinate ER] 12.5 mg PO BID 04/25/16 Potassium Chloride [Micro-K] 10 meq PO .M,W,F, 04/25/16 Cefuroxime Axetil [Ceftin] 500 mg PO Q12H 10 Days #20 tablet 07/20/18 Review of Systems - Review of Systems Constitutional: States: no symptoms reported EENTM: States: see HPI Respiratory: States: see HPI, cough Cardiology: States: no symptoms reported Gastrointestinal/Abdominal: States: no symptoms reported Genitourinary: States: no symptoms reported All other Systems: Reviewed and Negative, No Change from Baseline Past Medical History (General) - Patient Medical History Hx Seizures: No Hx Stroke: No Hx Asthma: Yes Hx of COPD: Yes Hx Cardiac Disorders: Yes - High cholesterol; arrhythmia Hx Congestive Heart Failure: No Hx Pacemaker: No Hx Hypertension: Yes Hx Diabetes: No Hx Gastroesophageal Reflux: No Hx Renal Disease: No Hx Cancer: Yes - bladder Hx Hepatitis C: No Hx MRSA: Yes MRSA Source:: Urine Surgical History: coronary bypass surgery, tonsillectomy, other - left hip;AAA- surgery - Vaccination History Hx Tetanus, Diphtheria Vaccination: No Hx Influenza Vaccination: No Hx Pneumococcal Vaccination: Yes - Social History Hx Tobacco Use: Yes - Quit 2008 Hx Chewing Tobacco Use: No Hx Alcohol Use: No Hx Substance Use: No Hx Substance Use Treatment: No Hx Depression: No Hx Physical Abuse: No Hx Emotional Abuse: No Hx Suspected Abuse: No - Female History Patient : No Family Medical History - Family History Mother Family History: No Known Cause of : old age Hx Cardiac Disease: Yes - multiple family members Physical Exam - Physical Exam General Appearance: Alert, Comfortable, No apparent distress Eye Exam: bilateral normal Ears, Nose, Throat: hearing grossly normal, normal ENT inspection, nasal congestion Neck: supple, normal inspection Respiratory: chest non-tender, lungs clear, normal breath sounds Cardiovascular/Chest: normal peripheral pulses, regular rate, rhythm, no murmur Peripheral Pulses: radial,right: 2+, radial,left: 2+ Gastrointestinal/Abdominal: normal bowel sounds, non tender, soft Back Exam: no CVA tenderness, no vertebral tenderness Extremity: no pedal edema, no calf tenderness Neurologic: alert, oriented x 3 Skin Exam: normal color, warm/dry Progress - Progress Progress: 07/20/18 11:27 Vital Signs - 8 hr 07/20/18 10:57 Temperature 97.7 F Pulse Rate [ 96 H Left Radial] Respiratory 26 H Rate Blood Pressure 150/72 [Left Arm] O2 Sat by Pulse 93 L Oximetry Departure - Departure Clinical Impression: Sinusitis Qualifiers: Sinusitis location: unspecified location Chronicity: unspecified Qualified Code(s): J32.9 - Chronic sinusitis, unspecified Time of Disposition: 11:28 Disposition: Discharge to Home or Self Care Condition: Fair Departure Forms: ED Discharge - Pt. Copy, Patient Portal Self Enrollment Instructions: Sinusitis, Adult (DC), Sinusitis in Adults Referrals: Raj Louie III, MD [Primary Care Provider] - 1-2 Weeks Prescriptions: Cefuroxime Axetil [Ceftin] 500 mg PO Q12H 10 Days #20 tablet Home Medications: Ambulatory Orders Atorvastatin Calcium [Lipitor] 10 mg PO HS #0 10/23/13 Dabigatran Etexilate [Pradaxa] 75 mg PO BID #0 cap 10/23/13 Aspirin [Baby Aspirin] 81 mg PO QD 07/25/14 Lisinopril 2.5 mg PO DAILY 07/25/14 Spironolactone 25 mg PO DAILY #30 tab 05/17/15 Furosemide Tab [Lasix Tab] 80 mg PO BID 04/25/16 Metoprolol Succinate [Metoprolol Succinate ER] 12.5 mg PO BID 04/25/16 Potassium Chloride [Micro-K] 10 meq PO .M,W,F, 04/25/16 Cefuroxime Axetil [Ceftin] 500 mg PO Q12H 10 Days #20 tablet 07/20/18 Additional Instructions: Use NASAL SALINE SPRAY 3 SPRAYS EACH NOSTRIL 3 x a day until better;continue with theraflu as directed;May use Zyrtec-10mg. (over the counter) one tablet at bedtime until better
[2018-07-20 11:52] VITALS: BP 120/87; O2SAT 94
== END 2018-07-20 11:39 | disposition home or self-care (01) ==
LOC: ER 10:42
DX: J32.9 Chronic sinusitis, unspecified (principal); J44.9 Chronic obstructive pulmonary disease, unspecified; E78.00 Pure hypercholesterolemia, unspecified; I10 Essential (primary) hypertension; Z85.51 Personal history of malignant neoplasm of bladder; Z95.1 Presence of aortocoronary bypass graft; Z87.891 Personal history of nicotine dependence; Z79.82 Long term (current) use of aspirin; Z79.899 Other long term (current) drug therapy

== ENCOUNTER → 2018-07-22 | Outpatient (CLI) | payer MEDICARE, OTHER | LOC: GRHH 11:54 | PROVIDERS: ATTEND Family Medicine | DX: E11.621 Type 2 diabetes mellitus with foot ulcer (principal); N18.3 Chronic kidney disease, stage 3 (moderate); E78.5 Hyperlipidemia, unspecified ==

== ENCOUNTER → 2018-10-27 | Outpatient (CLI) | payer OTHER | LOC: GMAL 11:01 | PROVIDERS: ATTEND Family Medicine | DX: D51.3 Other dietary vitamin B12 deficiency anemia (principal); I10 Essential (primary) hypertension; E11.621 Type 2 diabetes mellitus with foot ulcer; R53.82 Chronic fatigue, unspecified; E55.9 Vitamin D deficiency, unspecified; Z12.5 Encounter for screening for malignant neoplasm of prostate; Z79.899 Other long term (current) drug therapy | CPT/HCPCS: 82306; 82607; 84443; G0103 ==

== ENCOUNTER → 2019-04-18 | Outpatient (CLI) | payer OTHER ==
--- NOTE | 2019-04-18 13:14 | CT ---
Study: CT Chest. Indication: Other nonspecific abnormal finding of lung field Technique: CT imaging of the chest obtained without intravenous administration of contrast. This exam was performed according to our departmental dose-optimization program, which includes automated exposure control, adjustment of the mA and/or kV according to patient size and/or use of iterative reconstruction technique. Comparison: February 15, 2018 Findings: Atherosclerosis aorta, great vessels, coronary arteries. Mild cardiomegaly. Median sternotomy wires. Mild cardiomegaly. No pathologically enlarged mediastinal or hilar lymphadenopathy. Cholelithiasis. Partial visualization of an abdominal aortic graft with superior mesenteric artery and bilateral renal artery stents. Bilateral renal atrophy and scarring. Degenerative changes of the spine noted. Moderate to severe emphysema redemonstrated. Previously noted presumed fibrotic scarring within the right upper lobe peripherally is redemonstrated and appear stable in configuration. No new consolidation, pleural effusion, pneumothorax, or pulmonary mass. Impression: Moderate to severe emphysema with stable presumed fibrotic change within the right upper lobe. Continued annual CT screening/surveillance recommended. Additional stable findings as above. Electronically signed by: Maxime Pineda MD 04/18/2019 1:12 PM CDT
== END ==
LOC: CT 10:00
PROVIDERS: ATTEND Family Medicine
DX: R91.8 Other nonspecific abnormal finding of lung field (principal); J43.9 Emphysema, unspecified

== ENCOUNTER 2019-07-31 16:19 | Emergency (ER) | payer OTHER ==
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
[2019-07-31 16:41] VITALS: TEMP 96.8
--- NOTE | 2019-07-31 17:35 | RAD ---
EXAM DESCRIPTION: Tibia/Fibula,Right CLINICAL HISTORY: 83 years Male injury COMPARISON: 08/19/2015. TECHNIQUE: RIGHT tibia fibula, two views FINDINGS: No acute fractures or dislocations are identified. No osseous destructive lesions. Multiple metallic foreign objects are seen over the proximal tibia unchanged in the patient's prior examination. Vascular calcification is noted in the soft tissues. IMPRESSION: No acute fracture is identified. Electronically signed by: Akanksha Mittal MD 07/31/2019 5:34 PM HANDLE LATHE OPERATOR
[2019-07-31 18:44] VITALS: BP 113/77; O2SAT 94
== END 2019-07-31 18:43 | disposition home or self-care (01) ==
LOC: ER 16:19
DX: S80.11XA Contusion of right lower leg, initial encounter (principal); J44.9 Chronic obstructive pulmonary disease, unspecified; E78.00 Pure hypercholesterolemia, unspecified; I10 Essential (primary) hypertension; Z85.51 Personal history of malignant neoplasm of bladder; Z87.891 Personal history of nicotine dependence; Z79.899 Other long term (current) drug therapy; Z79.82 Long term (current) use of aspirin; V03.00XA Pedestrian on foot injured in collision with car, pick-up truck or van in nontraffic accident, initial encounter; Y92.410 Unspecified street and highway as the place of occurrence of the external cause

== ENCOUNTER → 2019-11-04 | Outpatient (CLI) | payer OTHER | LOC: GMAL 11:48 | PROVIDERS: ATTEND Family Medicine | DX: D51.3 Other dietary vitamin B12 deficiency anemia (principal); I10 Essential (primary) hypertension; R53.82 Chronic fatigue, unspecified; E55.9 Vitamin D deficiency, unspecified; E11.621 Type 2 diabetes mellitus with foot ulcer ==

== ENCOUNTER → 2020-01-13 | Outpatient (CLI) | payer OTHER ==
--- NOTE | 2020-01-13 11:19 | CT ---
Study: CT abdomen and pelvis. Indication: ABDOMINAL AORTIC ANEURYSM Technique: CT of the abdomen and pelvis obtained without intravenous contrast. This exam was performed according to our departmental dose-optimization program, which includes automated exposure control, adjustment of the mA and/or kV according to patient size and/or use of iterative reconstruction technique. Comparison: February 15, 2018. Findings: Mild bilateral basilar atelectasis versus scarring. Mild cardiomegaly. Several calcified gallstones within the gallbladder. Liver, pancreas, spleen, adrenal glands, bladder, prostate gland demonstrate a normal unenhanced CT appearance. Bilateral renal atrophy with several low-density bilateral renal lesions, likely cysts. Tiny hiatal hernia. Colonic diverticulosis without diverticulitis. Small bowel appendix unremarkable. No free fluid. No free air. No pathologically enlarged lymphadenopathy. Left total hip arthroplasty produces streak artifact degrading the pelvis. Degenerative changes of the spine noted. Osteopenia. Postsurgical changes of aortoiliac stent graft noted with SMA and bilateral renal artery stents. The excluded abdominal aortic aneurysm appears stable in size measuring 4.6 cm in diameter. Impression: Postsurgical changes of aortoiliac endograft placement as well as stenting of the bilateral renal arteries and SMA. The excluded aneurysmal sac appears stable in size but is suboptimally evaluated in the absence of IV contrast. If there is concern for endoleak, correlation with CTA recommended. Additional findings as above. Electronically signed by: Maxime Pineda MD 01/13/2020 11:18 AM CDT
== END ==
LOC: CT 08:13
PROVIDERS: ATTEND Family Medicine
DX: I71.4 Abdominal aortic aneurysm, without rupture (principal); Z98.890 Other specified postprocedural states

== ENCOUNTER → 2020-06-05 | Outpatient (CLI) | payer OTHER | LOC: GMAL 16:51 | PROVIDERS: ATTEND Family Medicine | DX: L03.031 Cellulitis of right toe (principal) ==